=== PATIENT | male | born 1995 | race Caucasian/White ===

== ENCOUNTER 2017-02-27 23:06 | Emergency (ER) | payer OTHER ==
[~2017-02-27] VITALS: Ht 188 cm; Wt 67.0 kg
[2017-02-27 23:43] VITALS: BP 133/73
[2017-02-28] MEDS ORDERED: HYDROCODONE/ACETAMINOPHEN 5-325 MG TABLET PO ONE
[2017-02-28] MEDS ORDERED: IBUPROFEN 600 MG TABLET PO ONE
[2017-02-28] MEDS ORDERED: CLINDAMYCIN HCL 150 MG CAPSULE PO ONE
== END 2017-02-28 00:15 | disposition home or self-care (01) ==
LOC: EMS 23:08
DX: K02.9 Dental caries, unspecified (principal); Z88.0 Allergy status to penicillin
CPT/HCPCS: 99284

== ENCOUNTER 2017-03-17 12:01 | Emergency (ER) | payer OTHER ==
[~2017-03-17] VITALS: Ht 188 cm; Wt 67.7 kg
[2017-03-17] MEDS ORDERED: AMOX500C2 PO (12:13)
[2017-03-17] MEDS ORDERED: IBUP-2070 PO (12:13)
[2017-03-17] MEDS ORDERED: IBUPROFEN 800 MG TABLET PO ONE (12:45)
[2017-03-17 13:20] VITALS: BP 131/79
== END 2017-03-17 13:22 | disposition home or self-care (01) ==
LOC: EMS 12:03
DX: K02.9 Dental caries, unspecified (principal); H92.01 Otalgia, right ear; Z88.0 Allergy status to penicillin
CPT/HCPCS: 99283